=== PATIENT | male | born 1955 | race African-American/Black ===

== ENCOUNTER 2016-08-25 12:30 | Emergency (ER) ==
[2016-08-25 13:00] LABS: URINE CULTURE PL NEEDED? NO; URINE SOURCE CLEAN CATCH
[2016-08-25 13:12] LABS: BILIRUBIN URINE NEGATIVE (NEGATIVE); BLOOD URINE NEGATIVE (NEGATIVE); CLARITY CLEAR (CLEAR); COLOR YELLOW; GLUCOSE URINE NEGATIVE (NEGATIVE); LEUKOCYTES URINE NEGATIVE (NEGATIVE); NITRITE URINE NEGATIVE (NEGATIVE); PROTEIN URINE TRACE mg/dL (NEGATIVE); UROBILINOGEN URINE NORMAL
[2016-08-25 13:13] LABS: URINE EPITHELIAL CELLS <10 /HPF (<10); URINE WBC <10 /HPF (<10)
--- NOTE | 2016-08-25 14:11 | PROVIDER DOCUMENTATION ---
HPI-Abdominal Pain/GI Problem - General Chief Complaint: Flank Pain Stated Complaint: FLANK/ABD PAIN Time Seen by Provider: 08/25/16 13:36 Allergies/Adverse Reactions: Patient Allergies Allergy/AdvReac Type Severity Reaction Status Date / Time No Known Allergies Allergy Verified 02/24/15 23:06 Home Medications: Home Medication List Medication Instructions Recorded Confirmed Last Taken Type Amlodipine Besylate [Norvasc] 1 tab PO DAILY 02/24/15 08/25/16 08/25/16 History Hydrocodone/Acetaminophen [[place] 1 tab PO TID PRN 02/24/15 08/25/16 08/25/16 History 10-325 Tablet] - History of Present Illness-ABD Nature of Presenting Problems: hurting in rlq especially sitting up since saturday Abdominal Pain Onset Location: reports: RLQ Pain Radiation: reports: flank Past History - Adult - PAST MEDICAL HISTORY-ADULT Musculoskeletal: reports: other (hx of rotator cuff injury) - PRIOR SURGERIES/PROCEDURES Surgical/Procedure History: reports: other (inguinal hernia repair, bilateral rotator cuff repair)
[2016-08-25 14:13] LABS: MANUAL DIFF NEEDED? NO
--- NOTE | 2016-08-25 14:14 | PROVIDER DOCUMENTATION ---
HPI-Abdominal Pain/GI Problem - General Source: patient - History of Present Illness-ABD Nature of Presenting Problems: Pt is 61 y/o M presents to the ED with R flank pain radiates to RLQ. Pt denies N /V/D. Pt denies F Abdominal Pain Onset Location: reports: flank (R) Pain Radiation: reports: RLQ Quality of Pain: reports: aching Severity in ED: reports: moderate Onset/Duration: reports: 3 days ago Timing: reports: still present, intermittent Activities at Onset: reports: light activity Exposure to sick contacts?: No Modifying Factors: improves with: nothing Associated Symptoms: reports: denies symptoms Last BM: unsure Dark Stools Present?: reports: none noticed Rectal Bleeding: reports: none Rectal Pain: reports: none Emesis Description: reports: none Bruising or Bleeding Gums?: No Similar Symptoms Previously?: Yes Recently seen or treated by another doctor?: No <Neelam Rocha - Last Filed: 08/25/16 16:56> <Brandon Hinojosa - Last Filed: 08/25/16 17:25> - General Chief Complaint: Flank Pain Stated Complaint: FLANK/ABD PAIN Time Seen by Provider: 08/25/16 13:36 Allergies/Adverse Reactions: Patient Allergies Allergy/AdvReac Type Severity Reaction Status Date / Time No Known Allergies Allergy Verified 02/24/15 23:06 Home Medications: Home Medication List Medication Instructions Recorded Confirmed Last Taken Type Amlodipine Besylate [Norvasc] 1 tab PO DAILY 02/24/15 08/25/16 08/25/16 History Hydrocodone/Acetaminophen [Novice 1 tab PO TID PRN 02/24/15 08/25/16 08/25/16 History 10-325 Tablet] Review of Systems - Adult - REVIEW OF SYSTEMS - ADULT Constitutional: reports: no symptoms reported Eyes: reports: no symptoms reported Ears, Nose, Mouth & Throat: reports: no symptoms reported Cardiovascular: reports: irregular heart rate (tachy). denies: chest pain, heart murmur Respiratory: reports: no symptoms reported Gastrointestinal: reports: abdominal pain. denies: diarrhea, nausea, vomiting Genitourinary: reports: no symptoms reported Musculoskeletal: reports: no symptoms reported Integumentary: reports: no symptoms reported Neurological: reports: no symptoms reported Psychiatric: reports: no symptoms reported Endocrine: reports: no symptoms reported <Neelam Rocha - Last Filed: 08/25/16 16:56> Past History - Adult - PAST MEDICAL HISTORY-ADULT Review of Records: reports: Nursing Assessment Review, Medications Reviewed, Social history reviewed & non-contributory. Major Childhood Illnesses: reports: denies history Cardiovascular: reports: HTN Respiratory: reports: denies history Gastrointestinal: reports: denies history Obstetrical/Gynecological: reports: denies history Genitourinary: reports: denies history Musculoskeletal: reports: other (hx of rotator cuff injury) Neurological: reports: denies history Endocrine/Immune: reports: denies history Other Conditions: reports: denies history - PRIOR SURGERIES/PROCEDURES Surgical/Procedure History: reports: reviewed, not pertinent, other (inguinal hernia repair, bilateral rotator cuff repair) - IMMUNIZATION STATUS Childhood Immunizations: See Nurse Assessment Flu Vaccine: See Nurse Assessment - FAMILY HISTORY Family History: reviewed, not pertinent - SOCIAL HISTORY Smoking: denies Substance Use: denies Living Situation: family <Neelam Rocha - Last Filed: 08/25/16 16:56> Physical Exam-General - PHYSICAL EXAM-ADULT Initial Vital Signs Reviewed: Yes - CONSTITUTIONAL General Appearance: appears well, alert, mild distress - EYES Eyes: PERRL/EOMI, pink conjunctivae, fundi clear, no AV nicking - HEAD, EARS, NOSE, MOUTH & THROAT HENMT: normocephalic/atraumatic, moist mucous membranes, normal ENT inspection, TMs normal, pharynx normal - NECK Neck: non-tender, full range of motion, supple, normal inspection - RESPIRATORY Respiratory: chest non-tender, lungs clear, normal breath sounds, no pleuratic chest pain, no respiratory distress, no accessory muscle use - CARDIOVASCULAR Cardiovascular: normal peripheral pulses, no edema, no gallop, no JVD, no murmur , tachycardia - GASTROINTESTINAL (ABDOMEN) Abdominal Exam: normal bowel sounds, soft, no organomegaly, no pulsatile mass, tenderness (RLQ) - LYMPHATIC Lymphatic: no adenopathy - MUSCULOSKELETAL Back Exam: normal inspection, no CVA tenderness, no vertebral tenderness Extremity: normal range of motion, non-tender, normal gait, normal inspection, no pedal edema - SKIN Integumentary: normal color, normal turgor, warm/dry - NEUROLOGIC Neurologic: sueding machine tender II-XII nml as tested, grossly normal, no motor/sensory deficits - PSYCHIATRIC Psych/Mental Status: normal mood/affect, normal thought content, normal thought process, oriented x 3 <Neelam Rocha - Last Filed: 08/25/16 16:56> Progress - PLAN OF CARE/RESULTS Progress/Plan/Lab Results: Laboratory Tests 08/25/16 08/25/16 13:50 Unknown WBC 5.81 RBC 5.20 Hgb 13.9 L Hct 41.6 L MCV 80.0 L MCH 26.7 L MCHC 33.4 RDW Std Deviation 13.2 Plt Count 212 MPV 11.1 H Immature Gran % (Auto) 0.3 Neut % (Auto) 84.2 H Lymph % (Auto) 11.0 L [place] % (Auto) 3.8 Eos % (Auto) 0.5 Baso % (Auto) 0.2 Immature Gran # (Auto) 0.02 Neut # (Auto) 4.89 Lymph # (Auto) 0.64 L [place] # (Auto) 0.22 Eos # (Auto) 0.03 Baso # (Auto) 0.01 Urine Source CLEAN CATCH Urine Color YELLOW Urine Clarity CLEAR Urine pH 5.0 Ur Specific [place] 1.020 Urine Protein TRACE A Urine Ketones NEGATIVE Urine Blood NEGATIVE Urine Nitrite NEGATIVE Urine Bilirubin NEGATIVE Urine Urobilinogen NORMAL Urine Microscopic RBC Not Reportable Urine WBC NEGATIVE Urine Microscopic WBC <10 Ur Epithelial Cells <10 Urine Bacteria 1+ Urine Glucose NEGATIVE Orders Category Date Time Status ABDOMEN/PELVIS W/CONTRAST [CT] Stat Exams 08/25/16 14:05 Ordered CBC WITH DIFF [HEME] Stat Lab 08/25/16 13:50 Completed COMPREHENSIVE METABOLIC PANEL [CHEM] Stat Lab 08/25/16 13:[address] W/POSS RFLX CULT [URINALYSIS] Stat Lab 08/25/16 Completed Vital Signs - 24 hr 08/25/16 12:48 Temperature 98.3 F Pulse Rate 113 H Respiratory 18 Rate Blood Pressure 157/89 O2 Sat by Pulse 98 Oximetry Laboratory Tests 08/25/16 08/25/16 08/25/16 13:50 13:50 Unknown WBC 5.81 RBC 5.20 Hgb 13.9 L Hct 41.6 L MCV 80.0 L MCH 26.7 L MCHC 33.4 RDW Std Deviation 13.2 Plt Count 212 MPV 11.1 H Immature Gran % (Auto) 0.3 Neut % (Auto) 84.2 H Lymph % (Auto) 11.0 L [place] % (Auto) 3.8 Eos % (Auto) 0.5 Baso % (Auto) 0.2 Immature Gran # (Auto) 0.02 Neut # (Auto) 4.89 Lymph # (Auto) 0.64 L [place] # (Auto) 0.22 Eos # (Auto) 0.03 Baso # (Auto) 0.01 Sodium 135 L Potassium 3.9 Chloride 97 L Carbon Dioxide 27 Anion Gap 11 BUN 16 Creatinine 1.0 Estimated GFR/1.73 m2 > 60 BUN/Creatinine Ratio 16 Glucose 92 Calculated Osmolality 271 Calcium 9.7 Total Bilirubin 0.20 AST 26 ALT 23 Alkaline Phosphatase 59 Total Protein 7.8 Albumin 4.9 Globulin 3.0 Albumin/Globulin Ratio 2.0 Urine Source CLEAN CATCH Urine Color YELLOW Urine Clarity CLEAR Urine pH 5.0 Ur Specific [place] 1.020 Urine Protein TRACE A Urine Ketones NEGATIVE Urine Blood NEGATIVE Urine Nitrite NEGATIVE Urine Bilirubin NEGATIVE Urine Urobilinogen NORMAL Urine Microscopic RBC Not Reportable Urine WBC NEGATIVE Urine Microscopic WBC <10 Ur Epithelial Cells <10 Urine Bacteria 1+ Urine Glucose NEGATIVE - CT/MRI 1 CT Study: Abdomen, Pelvis Impression: Abnormal (unremarkable appendix; constipation) CT Results: moderate distention of urinary bladder; no bowel obstruction <Neelam Rocha - Last Filed: 08/25/16 16:56> Departure <Neelam Rohca - Last Filed: 08/25/16 16:56> - Departure Time of Disposition Order: 17:24 Certified Medical Emergency: Emergent <Brandon Hinojosa - Last Filed: 08/25/16 17:25> - Departure DIAGNOSIS: Abdominal pain Qualifiers: Abdominal location: right lower quadrant Qualified Code(s): R10.31 - Right lower quadrant pain Disposition: HOME 01 Condition: Stable Additional Instructions: ED Follow Up Instructions: You have been treated by a care provider in the Emergency Department. These instructions are being provided to you so you can have an understanding of how to care for yourself upon discharge. Upon discharge from the Emergency Department, you are responsible for making arrangements for follow-up care by a physician of your choice. Take all prescribed medications as directed. Return to the Emergency Department immediately for any new or worsening symptoms. You may call the Physician Referral phone number at [phone] to obtain a list of Physicians who are taking new patients. Referrals: Deepak Ricks MD [Primary Care Provider] - Attestation - Scribe Verification/Attestation Scribe:: Neelam Rocha Acting as Scribe for:: Brandon Hinojosa Scribe documention review:: This chart was documented by a scribe and accurately reflects the service the provider performed and the decisions made by the provider. <Neelam Rocha - Last Filed: 08/25/16 16:56> Physician Attestation
[2016-08-25 14:15] LABS: BASO% 0.2 % (0.0-0.8); EOS# 0.03 X1000 (0.0-0.7); EOS% 0.5 % (0.0-10.0); HEMATOCRIT 41.6 % (42.0-52.0); HEMOGLOBIN 13.9 g/dL (14.0-18.0); IMM GRAN# 0.02 X1000 (0.0-0.04); IMM GRAN% 0.3 % (0.0-0.5); LYMPH# 0.64 X1000 (1.2-3.4); MCH 26.7 PG (27-31); MCHC 33.4 g/dL (33-37); MONO# 0.22 X1000 (0.11-0.59); MONO% 3.8 % (1.7-9.3); MPV 11.1 FL (7.4-10.4); NEUT% 84.2 % (42.2-75.2); PLT 212 X1000 (130-400)
[2016-08-25 14:35] LABS: AGAP 11; ALBUMIN 4.9 g/dL (3.5-5.0); ALKALINE PHOSPHATASE 59 U/L (32-122); BUN 16 mg/dL (8-22); CALCIUM 9.7 mg/dL (8.8-10.2); CHLORIDE 97 mmol/L (98-107); COSMO 271; GOT 26 U/L (10-34); GPT 23 U/L (10-44); POTASSIUM 3.9 mmol/L (3.5-5.1); SODIUM 135 mmol/L (136-145); TCO2 27 mmol/L (25-35); TOTAL PROTEIN 7.8 g/dL (6.3-8.3)
[2016-08-25] MEDS ORDERED: MOVANTIK PO ONE (17:17)
[2016-08-25 17:37] VITALS: BP 135/86
--- NOTE | 2016-08-25 17:40 | Diag Imaging Result Document ---
PROCEDURE NAME: ABDOMEN/PELVIS W/CONTRAST - 08/25/2016 CT ABDOMEN AND PELVIS WITH CONTRAST: FINDINGS: Exam performed with oral and intravenous contrast. A dose reduction protocol was used. Compared with 04/09/2012. The visualized lung bases show mild subsegmental atelectasis. There are no substantial abnormalities of the liver, spleen, adrenal glands, or pancreas identified. There are no calcified gallstones or pericholecystic inflammation identified. There is a 1.7 cm right renal cyst which has enlarged mildly. There are a couple of additional tiny right renal cysts. There is slight fullness of the bilateral renal collecting systems. There is no obstructing renal stone identified. The urinary bladder is somewhat distended. The urinary bladder isabel do not appear thickened. There is a tiny nonobstructing stone in the upper left kidney. There are no substantially enlarged lymph nodes identified. There is no evidence of bowel obstruction. The appendix is unremarkable. There is no substantial bowel wall thickening identified. There are a few colonic diverticula. There is no evidence of diverticulitis. There is a moderate amount of retained fecal debris in the colon. There is no abscess identified. There is no free air. There is no free fluid identified. IMPRESSION: 1. Moderately distended urinary bladder. No urinary bladder wall thickening. Slight fullness of bilateral renal collecting systems, which likely relates to the distended urinary bladder. No gross hydronephrosis. No obstructing renal stone. Tiny nonobstructing stone in upper left kidney. 2. No bowel obstruction. Unremarkable appendix. 3. Apparent constipation. 4. No abscess. No free air. MTDD
== END 2016-08-25 18:00 | disposition home or self-care (01) ==
LOC: P.ED 12:30
DX: R10.31 Right lower quadrant pain (principal); N32.89 Other specified disorders of bladder; R10.9 Unspecified abdominal pain; R00.0 Tachycardia, unspecified; R10.813 Right lower quadrant abdominal tenderness; I10 Essential (primary) hypertension; Z79.899 Other long term (current) drug therapy
CPT/HCPCS: 74177; 80053; 81001; 85025; Q9967